=== PATIENT | female | born 1945 | race African-American/Black ===

== ENCOUNTER 2021-10-09 00:34 | Observation (INO) ==
[2021-10-09 02:11] LABS: Basophils % 0.6 % (0.0-0.8); Eosinophils % 0.8 % (0.00-10.9); Hematocrit 32.9 VOL% (35.7-47.0); Hemoglobin 10.5 GM/DL (12.0-16.0); Immature Granulocytes % 0.3 %; Immature Granulocytes Absolute 0.01 #; Mean Corpuscular HGB Conc 31.9 GM/DL (32-36); Mean Corpuscular Volume 73.1 FL (87-102); Mean Platelet Volume 10.1 FL (9.6-12.0); Monocytes # 0.4 10*3/uL (0.11-0.8); Monocytes % 9.6 % (1.7-12.7); Neutrophils % 61.7 % (38.7-73.9); Platelet Count 216 T/CUMM (130-400); Red Cell Distribution Width 14.6 % (9.3-17.3); White Blood Count 3.6 T/CUMM (4-12)
[2021-10-09 02:23] LABS: INR 1.1; PT Patient Result 12.3 SECS (10.5-12.0); Partial Thromboplastin Time 26.1 SECS (23.8-32.1)
[2021-10-09] MEDS ORDERED: ACETAMINOPHEN 325 MG TABLET PO PRN (02:25)
[2021-10-09] MEDS ORDERED: ONDANSETRON 4 MG/2 ML VIAL IV PRN (02:25)
[2021-10-09] MEDS ORDERED: GLUCAGON 1 MG VIAL IM PRN (02:25)
[2021-10-09 02:29] LABS: Alanine Aminotransferase 26 U/L (13-56); Albumin 3.8 G/DL (3.4-5.0); Alkaline Phosphatase 51 U/L (45-117); Aspartate Amino Transferase 19 U/L (0-37); Bilirubin,Total < 0.39 MG/DL (0.20-1.00); Blood Urea Nitrogen 27 MG/DL (7-18); Calcium 9.2 MG/DL (8.5-10.1); Carbon Dioxide 28 MMOL/L (21-32); Chloride 110 MMOL/L (98-107); Glucose 104 MG/DL (74-106); Osmolality,Calculated 281.5 MOS/KG (273-304); Potassium 4.3 MMOL/L (3.5-5.1); Sodium 139 MMOL/L (136-145); Total Protein 7.6 G/DL (6.4-8.2)
[2021-10-09] MEDS ORDERED: DEXTROSE 10% 250 ML BAG IV PRN (02:41)
[2021-10-09 03:03] LABS: Thyroid Stimulating Hormone 1.63 uIU/ml (0.358-3.74); VLDL Cholesterol 7.4 MG/DL
[2021-10-09] MEDS ORDERED: ASPIRIN CHEW 81 MG TABLET PO STA (04:37)
[2021-10-09] MEDS ORDERED: ASPIRIN EC 325 MG TABLET PO STA (04:44)
[2021-10-09 05:28] LABS: Hematocrit 33.4 VOL% (35.7-47.0); Hemoglobin 10.6 GM/DL (12.0-16.0); Lymphocytes # 1.3 10*3/uL (1.4-4.0); Lymphocytes % 39.9 % (21.3-54.2); Mean Corpuscular HGB Conc 31.7 GM/DL (32-36); Mean Corpuscular Volume 72.9 FL (87-102); Mean Platelet Volume 10.4 FL (9.6-12.0); Monocytes # 0.3 10*3/uL (0.11-0.8); Monocytes % 8.6 % (1.7-12.7); Neutrophils % 49.5 % (38.7-73.9); Platelet Count 234 T/CUMM (130-400); Red Blood Count 4.58 MC/CUMM (3.8-5.5); Red Cell Distribution Width 14.4 % (9.3-17.3); White Blood Count 3.1 T/CUMM (4-12)
[2021-10-09 05:49] LABS: Folate > 24.00 NG/ML (5.38-24.0); Vitamin B12 1164 PG/ML (211-911)
[2021-10-09 07:33] LABS: Sedimentation Rate-Westergren 12 MM/HR (0-30)
[2021-10-09] MEDS: VENLAFAXINE XR 37.5 MG CAPSULE PO SCH (08:48)
[2021-10-09] MEDS: DONEPEZIL 10 MG TABLET PO SCH (08:53)
[2021-10-09] MEDS: PANTOPRAZOLE 40 MG TABLET PO SCH (08:53)
[2021-10-09] MEDS: DOCUSATE SODIUM 100 MG CAPSULE PO SCH ×2 (08:53→21:07)
[2021-10-09] MEDS: POLYETHYLENE GLYCOL POWDER 17 GM PACK PO SCH (11:33)
[2021-10-09 11:59] LABS: Mucus,Urine Few /LPF (Occasional); RBC,Urine 1 /HPF (0-4); Squamous Epithelial Cell,Urine Few /HPF (0-10); Urine Appearance Clear (Clear); Urine Color Yellow (Yellow)
[2021-10-09 12:00] LABS: Bilirubin,Urine Negative (Negative); Blood, Urine Negative (Negative); Glucose,Urine (UA) Negative (Negative); Ketones,Urine Negative (Negative); Nitrite,Urine Negative (Negative); Protein,Urine Negative (Negative); Urine Urobilinogen 0.2 eU/dL (<2.0)
[2021-10-10 04:41] LABS: Basophils % 0.8 % (0.0-0.8); Eosinophils # 0.1 10*3/uL (0.0-0.87); Hematocrit 30.8 VOL% (35.7-47.0); Hemoglobin 9.6 GM/DL (12.0-16.0); Lymphocytes # 1.6 10*3/uL (1.4-4.0); Lymphocytes % 65.6 % (21.3-54.2); Mean Corpuscular HGB Conc 31.2 GM/DL (32-36); Mean Corpuscular Volume 73.3 FL (87-102); Mean Platelet Volume 10.9 FL (9.6-12.0); Monocytes # 0.3 10*3/uL (0.11-0.8); Monocytes % 11.2 % (1.7-12.7); Neutrophils % 20.4 % (38.7-73.9); Platelet Count 215 T/CUMM (130-400); Red Cell Distribution Width 14.5 % (9.3-17.3); White Blood Count 2.5 T/CUMM (4-12)
[2021-10-10 05:06] LABS: Atypical Lymphocytes Few; Eosinophils 1 % (0-10); Lymphocytes 74 % (20-55); Total Cells Counted 100
[2021-10-10 05:07] LABS: Calcium 8.7 MG/DL (8.5-10.1); Osmolality,Calculated 282.3 MOS/KG (273-304); Potassium 4.1 MMOL/L (3.5-5.1)
[2021-10-10 05:08] LABS: Hypochromia 1+; Microcytosis 1+; Target Cells Slight
[2021-10-10 05:09] LABS: Ovalocytes Slight; Platelet Estimate Normal
[2021-10-10] MEDS: POLYETHYLENE GLYCOL POWDER 17 GM PACK PO SCH (08:04)
[2021-10-10] MEDS: DONEPEZIL 10 MG TABLET PO SCH (08:05)
[2021-10-10] MEDS: VENLAFAXINE XR 37.5 MG CAPSULE PO SCH (08:05)
[2021-10-10] MEDS: DOCUSATE SODIUM 100 MG CAPSULE PO SCH (08:05)
[2021-10-10] MEDS: PANTOPRAZOLE 40 MG TABLET PO SCH (08:05)
[2021-10-10 09:32] VITALS: BP 139/63
== END 2021-10-10 12:00 | disposition home or self-care (01) ==
LOC: N.ED 00:34 → N.TELES 00:34
PROVIDERS: ADMIT Family Medicine; ATTEND Family Medicine

== ENCOUNTER 2022-04-17 13:00 | Observation (INO) ==
[2022-04-17] MEDS ORDERED: ONDANSETRON 4 MG/2 ML VIAL IV STA (13:33)
[2022-04-17] MEDS ORDERED: HYDROmorphone 1 MG/1 ML SYRINGE IV STA (13:33)
[2022-04-17] MEDS ORDERED: SODIUM CHLORIDE 0.9% 1,000 ML IV STA (13:33)
[2022-04-17 14:36] LABS: Basophils % 0.2 % (0.0-0.8); Eosinophils % 0.8 % (0.00-10.9); Hematocrit 34.7 VOL% (35.7-47.0); Hemoglobin 10.7 GM/DL (12.0-16.0); Immature Granulocytes % 0.2 %; Immature Granulocytes Absolute 0.01 #; Lymphocytes # 0.2 10*3/uL (1.4-4.0); Mean Corpuscular HGB Conc 30.8 GM/DL (32-36); Mean Corpuscular Volume 76.3 FL (87-102); Mean Platelet Volume 10.3 FL (9.6-12.0); Monocytes # 0.3 10*3/uL (0.11-0.8); Neutrophils % 87.8 % (38.7-73.9); Platelet Count 213 T/CUMM (130-400); Red Blood Count 4.55 MC/CUMM (3.8-5.5); White Blood Count 4.8 T/CUMM (4-12)
[2022-04-17 14:58] LABS: Albumin 3.6 G/DL (3.4-5.0); Bilirubin,Total 0.6 MG/DL (0.20-1.00); Calcium 8.6 MG/DL (8.5-10.1); Potassium 4.1 MMOL/L (3.5-5.1); Total Protein 6.9 G/DL (6.4-8.2)
[2022-04-17 15:27] LABS: Glucose,Urine (UA) Negative (Negative); Protein,Urine Negative (Negative); Urine Appearance Clear (Clear); Urine Color Yellow (Yellow); Urine pH 6.5 (4.5-8.0)
[2022-04-17 15:28] LABS: Bilirubin,Urine Negative (Negative); Blood, Urine Trace mg/dL (Negative); Ketones,Urine Negative (Negative); Nitrite,Urine Negative (Negative); Urine Urobilinogen 0.2 eU/dL (<2.0)
[2022-04-17] MEDS ORDERED: ONDANSETRON 4 MG/2 ML VIAL IV PRN (15:29)
[2022-04-17] MEDS ORDERED: ACETAMINOPHEN 325 MG TABLET PO PRN (15:29)
[2022-04-17 15:30] LABS: Mucus,Urine Many /LPF (Occasional); RBC,Urine 6 /HPF (0-4); Squamous Epithelial Cell,Urine Occasional /HPF (0-10)
[2022-04-17] MEDS: SODIUM CHLORIDE 0.9% 1,000 ML IV SCH (17:22)
[2022-04-17] MEDS ORDERED: ENOXAPARIN 40 MG/0.4 ML SYRINGE SUBCUT SCH (18:00)
[2022-04-17] MEDS ORDERED: ALBUTEROL 2.5 MG/3 ML NEB RESP TX PRN (19:00)
[2022-04-17] MEDS: DOCUSATE SODIUM 100 MG CAPSULE PO SCH (21:17)
[2022-04-17] MEDS: POLYETHYLENE GLYCOL POWDER 17 GM PACK PO SCH (21:17)
[2022-04-17] MEDS: GABAPENTIN 100 MG CAPSULE PO SCH (21:18)
[2022-04-18] MEDS: NON-FORMULARY MEDICATION (Dextroamphetamine-Amphetamine 20 mg tablet) PO SCH ×2 (06:10→09:12)
[2022-04-18] MEDS: SODIUM CHLORIDE 0.9% 1,000 ML IV SCH (06:10)
[2022-04-18 06:16] LABS: Basophils % 0.3 % (0.0-0.8); Eosinophils % 0.7 % (0.00-10.9); Hematocrit 30.1 VOL% (35.7-47.0); Hemoglobin 9.5 GM/DL (12.0-16.0); Immature Granulocytes % 0.3 %; Immature Granulocytes Absolute 0.01 #; Lymphocytes # 0.3 10*3/uL (1.4-4.0); Lymphocytes % 9.7 % (21.3-54.2); Mean Corpuscular HGB Conc 31.6 GM/DL (32-36); Mean Corpuscular Volume 74.3 FL (87-102); Mean Platelet Volume 10.7 FL (9.6-12.0); Monocytes # 0.4 10*3/uL (0.11-0.8); Platelet Count 191 T/CUMM (130-400); Red Blood Count 4.05 MC/CUMM (3.8-5.5); Red Cell Distribution Width 14.7 % (9.3-17.3)
[2022-04-18 06:42] LABS: Albumin 2.9 G/DL (3.4-5.0); Bilirubin,Total 0.5 MG/DL (0.20-1.00); Calcium 8.6 MG/DL (8.5-10.1); Osmolality,Calculated 284.1 MOS/KG (273-304); Potassium 3.5 MMOL/L (3.5-5.1); Total Protein 6.1 G/DL (6.4-8.2)
[2022-04-18 07:49] VITALS: BP 105/49
[2022-04-18] MEDS ORDERED: LOSARTAN 50 MG TABLET PO SCH (09:00)
[2022-04-18] MEDS ORDERED: PANTOPRAZOLE 40 MG TABLET PO SCH (09:00)
[2022-04-18] MEDS ORDERED: methIMAzole 5 MG TABLET PO SCH (09:00)
[2022-04-18] MEDS ORDERED: DONEPEZIL 10 MG TABLET PO SCH (09:00)
[2022-04-18] MEDS ORDERED: FUROSEMIDE 20 MG TABLET PO SCH (09:00)
[2022-04-18] MEDS: DOCUSATE SODIUM 100 MG CAPSULE PO SCH (09:12)
[2022-04-18] MEDS: POLYETHYLENE GLYCOL POWDER 17 GM PACK PO SCH (09:12)
[2022-04-18] MEDS: GABAPENTIN 100 MG CAPSULE PO SCH (09:12)
== END 2022-04-18 11:20 | disposition home or self-care (01) ==
LOC: N.EDINP 13:00 → N.ED 13:00 → N.EDINP 16:16 → N.2W 16:24
PROVIDERS: ADMIT Internal Medicine; ATTEND Internal Medicine